=== PATIENT | female | born 1960 | race Caucasian/White ===

== ENCOUNTER 2017-07-31 12:04 | Emergency (ER) | payer BC ==
[2017-07-31] MEDS ORDERED: Diphtheria,Pertussis(Acell),Tetanus Vaccine 0.5 ML SDV IM ONE (12:27)
[2017-07-31] MEDS ORDERED: Lidocaine 1% 20 ML MDV INJECT ONE (12:27)
[2017-07-31 12:28] VITALS: BP 150/89
--- NOTE | 2017-07-31 12:33 | EDM.PDOC ---
ED HPI GENERAL MEDICAL PROBLEM - General Chief Complaint: Laceration Stated Complaint: FINGER LAC Time Seen by Provider: 07/31/17 12:20 Source of Information: Reports: Patient History Limitations: Reports: No Limitations - History of Present Illness INITIAL COMMENTS - FREE TEXT/NARRATIVE: Patient is a 56-year-old female presents ED complaining of a crush injury to the distal phalanx of the right middle finger and with laceration. Patient states she was taking apart HLS when I folded back on her pinching her finger between 2 pieces of metal. Pain is localized to the distal tip. Bleeding is minimal. No sensory changes noted. Tetanus status is not up-to-date. No pain to remainder fingers or hand. She denies any additional complaints. Right 3-Middle finger Pain Score (Numeric/FACES): 6 - Related Data Allergies Allergy/AdvReac Type Severity Reaction Status Date / Time No Known Allergies Allergy Verified 07/31/17 12:31 Home Meds: Home Meds Ascorbate Calcium [Vitamin C] 500 mg PO DAILY 07/31/17 [History] Cephalexin [Keflex] 500 mg PO Q6HR #28 cap 07/31/17 [Rx] [place] Eye Drop 1 drop TOP DAILY 07/31/17 [History] Fish Oil/[place]-3 Fatty Acids [Fish Oil 1,000 MG] 1 gram PO DAILY 07/31/17 [ History] Multivitamin [Multivitamins] 1 cap PO DAILY 07/31/17 [History] Occuvite Eye Tabs 1 tab PO DAILY 07/31/17 [History] ED ROS GENERAL - Review of Systems Review Of Systems: ROS reveals no pertinent complaints other than HPI. ED EXAM, SKIN/RASH Exam: See Below Exam Limited By: No Limitations General Appearance: Alert, WD/WN, No Apparent Distress Ears: Hearing Grossly Normal Throat/Mouth: Normal Inspection, Normal Voice, No Airway Compromise Neck: Normal Inspection, Supple Respiratory/Chest: No Respiratory Distress, No Accessory Muscle Use Cardiovascular: Normal Peripheral Pulses Extremities: Other (Right middle finger distal tip: Small laceration noted to the lateral aspect of the finger involving the lateral border of the nail bed. Hematoma underneath the nail bed. Mild swelling present. An with palpation. No bony abnormalities. Able to extend and flex the finger at the DIP and PIP. No sensory changes noted.) Neurological: Alert, Oriented, CN II-XII Intact, Normal Cognition, No Motor/ Sensory Deficits Psychiatric: Normal Affect, Normal Mood Skin: Warm, Dry, Normal Color ED SKIN PROCEDURES - Laceration/Wound Repair Right Finger Lac/Wound length In cm: 0.5 Appearance: Subcutaneous, Clean Distal NVT: Neuro & Vascular Intact, No Tendon Injury Anesthetic Type: Digital Local Anesthesia - Lidocaine (Xylocaine): 1% Plain Local Anesthetic Volume: 4cc Skin Prep: Chlorhexidine (Hibiciens), Saline, Sterile Drape Exploration/Debridement/Repair: Wound Explored, In a Bloodless Field, Explored to Base, No Foreign Material Found Closed with: Sutures Suture Size: 4-0 # of Sutures: 4 (Including one suture to the distal nail on the corners to reattach tip under the nail. ) Suture Type: Prolene, Interrupted, Simple Drain Placement: No Sterile Dressing Applied: Nurse Tetanus Status Addressed: Yes Complications: No Right Distal Finger Lac/Wound length In cm: 0.2 Appearance: Subcutaneous Distal NVT: Neuro & Vascular Intact Anesthetic Type: Digital Local Anesthesia - Lidocaine (Xylocaine): 1% Plain Local Anesthetic Volume: 4cc Skin Prep: Chlorhexidine (Hibiciens), Saline, Sterile Drape Exploration/Debridement/Repair: Wound Explored, In a Bloodless Field, Explored to Base Closed with: Sutures Suture Size: 4-0 # of Sutures: 1 Suture Type: Prolene, Interrupted, Simple Drain Placement: No Sterile Dressing Applied: Nurse Tetanus Status Addressed: Yes Complications: No Course - Vital Signs Last Recorded V/S: Last Vital Signs Temp 97.5 F 07/31/17 12:05 Pulse 91 07/31/17 12:05 Resp 20 07/31/17 12:05 BP 150/89 H 07/31/17 12:05 Pulse Ox 98 07/31/17 12:05 - Orders/Labs/Meds Orders: Active Orders 24 hr Category Date Time Status Vaccines to be Administered [RC] PER UNIT ROUTINE Care 07/31/17 12:28 Active Fingers Third Digit Rt F7 [CR] Stat Exams 07/31/17 12:27 Taken Meds: Medications Discontinued Medications Generic Name Dose Route Start Last Admin Trade Name Freq PRN Reason Stop Dose Admin Cephalexin 500 mg 07/31/17 13:07 07/31/17 13:17 Keflex PO 07/31/17 13:08 500 mg ONETIME ONE Administration Diphtheria/Tetanus/Acell Pertussis 0.5 ml 07/31/17 12:27 07/31/17 12:44 Adacel IM 07/31/17 12:28 0.5 ml .ONCE ONE Administration Lidocaine HCl 20 ml 07/31/17 12:27 07/31/17 13:20 Xylocaine 1% INJECT 07/31/17 12:28 Not Given ONETIME ONE Lidocaine HCl Confirm 07/31/17 12:44 07/31/17 12:48 Xylocaine 1% Administered 07/31/17 12:45 Not Given Dose 50 ml .ROUTE .STK-MED ONE Lidocaine HCl 50 ml 07/31/17 13:15 07/31/17 13:17 Xylocaine 1% INJECT 07/31/17 13:16 50 ml ONETIME ONE Administration - Re-Assessments/Exams Free Text/Narrative Re-Assessment/Exam: Ordered x-ray of the right third finger, Adacel, and lidocaine 1%. X-ray of the right third finger revealed tuft fracture. Thus due to proximity of laceration with fracture will treat as open fracture. Keflex 500mg po ordered. Laceration closed with no complications. We'll discharge patient home with instructions as documented. Departure - Departure Time of Disposition: 12:33 Disposition: Home, Self-Care 01 Condition: Good Clinical Impression: Crushing injury of finger of right hand Laceration of finger Qualifiers: Encounter type: initial encounter Finger: middle finger Damage to nail status: without damage Foreign body presence: without foreign body Laterality: right Qualified Code(s): S61.212A - Laceration without foreign body of right middle finger without damage to nail, initial encounter Open fracture of finger of right hand Qualifiers: Encounter type: initial encounter Finger: middle finger Phalanx: distal Fracture alignment: nondisplaced Qualified Code(s): S62.662B - Nondisplaced fracture of distal phalanx of right middle finger, initial encounter for open fracture - Discharge Information Prescriptions: Cephalexin [Keflex] 500 mg PO Q6HR #28 cap Instructions: Laceration Care, Adult, [id number], Stitches, Jessica, or Adhesive Wound Closure, [id number] Referrals: Carlitos Mijares MD [Physician] - Forms: ED Department Discharge Additional Instructions: Cleanse site twice daily with soap and water, pat dry, reapply triple antibiotic ointment, and dressing. No soaking wound. Keep area clean and dry. Elevate when able to reduce swelling and pain. Can place ice to affected area as needed. Utilize Tylenol and ibuprofen in alternating fashion for pain. Follow -up with your Maryana Cooley in 7 days. See a provider at [facility] in 10-14 days to have sutures removed. Leave splint in place for one month. Take the full course of keflex as prescribed. Return to ED as needed for any new or worsening symptoms. - My Orders Last 24 Hours: My Active Orders 07/31/17 12:27 Fingers Third Digit Rt F7 [CR] Stat 07/31/17 12:28 Vaccines to be Administered [RC] PER UNIT ROUTINE - Assessment/Plan Last 24 Hours: My Active Orders 07/31/17 12:27 Fingers Third Digit Rt F7 [CR] Stat 07/31/17 12:28 Vaccines to be Administered [RC] PER UNIT ROUTINE
[2017-07-31] MEDS: Lidocaine 1% 50 ML MDV ONE ×2 (12:45→12:48)
[2017-07-31] MEDS ORDERED: Cephalexin 500 MG Cap PO ONE (13:07)
[2017-07-31] MEDS ORDERED: Lidocaine 1% 50 ML MDV INJECT ONE (13:15)
[2017-07-31] MEDS ORDERED: Cephalexin 500 MG Cap ONE (14:10)
--- NOTE | 2017-07-31 16:55 | CR ---
Right third finger: Four views of the right third finger were obtained. Slightly comminuted fracture identified involving the distal tuft of the right third finger. Soft tissue swelling is identified. Mild degenerative change is noted within the DIP joint. No additional bony abnormality is identified. Small soft tissue calcification is seen proximal to the PIP joint which is felt to be incidental. Impression: 1. Fracture within the distal tuft of the right third finger. 2. Other incidental findings. Diagnostic code #3
== END 2017-07-31 13:55 | disposition home or self-care (01) ==
LOC: JD.ED 12:04
DX: S62.662B Nondisplaced fracture of distal phalanx of right middle finger, initial encounter for open fracture (principal); S61.212A Laceration without foreign body of right middle finger without damage to nail, initial encounter; Z23 Encounter for immunization; Z79.899 Other long term (current) drug therapy; W23.1XXA Caught, crushed, jammed, or pinched between stationary objects, initial encounter
CPT/HCPCS: 12001; 73140; 90471; 90715; 99284; A9270; 64450; 99283-25

== ENCOUNTER 2025-07-11 12:10 | Inpatient (IN) | payer BC ==
[2025-07-11] MEDS ORDERED: Sodium Chloride 0.9% 10 ML Syringe FLUSH PRN (13:10)
[2025-07-11 14:06] LABS: A/G RATIO 0.7 (1-2); ALANINE AMINOTRANSFERASE,ALT 28 U/L (14-59); ASPARTATE AMNIOTRANSFERASE,AST 50 U/L (15-37); BILIRUBIN TOTAL 4.8 mg/dL (0.2-1.0); BLOOD UREA NITROGEN,BUN 39 mg/dL (7-18); CARBON DIOXIDE,CO2 20 mEq/L (21-32); CHLORIDE,CL 96 mEq/L (98-107); ESTIMATED GFR 34 mL/min (>60); GLUCOSE RANDOM 109 mg/dL (70-99); POTASSIUM,K 4.5 mEq/L (3.5-5.1); SODIUM,NA 128 mEq/L (136-145); TROPONIN I HIGH SENSITIVITY 9 pg/mL (<=51)
[2025-07-11 14:07] LABS: BASOPHILS ABSOLUTE AUTO 0.0 K/mm3 (0.0-0.2); BASOPHILS PERCENT AUTO 0.5 % (0.0-1.0); EOSINOPHILS ABSOLUTE AUTO 0.0 K/mm3 (0.0-0.4); EOSINOPHILS PERCENT AUTO 0.0 % (0.0-6.0); IMMATURE GRAN ABSOLUTE AUTO 0.04 K/mm3 (0.00-0.05); IMMATURE GRAN PERCENT AUTO 0.7 % (0.0-0.4); LYMPHOCYTES ABSOLUTE AUTO 1.7 K/mm3 (1.0-4.8); LYMPHOCYTES PERCENT AUTO 27.5 % (24.0-44.0); MEAN PLATELET VOLUME 9.0 fl (9.4-12.3); MONOCYTES ABSOLUTE AUTO 0.9 K/mm3 (0.0-0.8); MONOCYTES PERCENT AUTO 14.1 % (0.0-8.0); NEUTROPHILS ABSOLUTE AUTO 3.5 K/mm3 (1.8-7.7); NEUTROPHILS PERCENT AUTO 57.2 % (41.0-71.0); NRBC ABSOLUTE 0.00 (0.00-0.02); NRBC PERCENT 0.0 % (0.0-0.2); PLATELET COUNT,PLT 111 K/mm3 (150-400); RED BLOOD CELL COUNT 1.50 M/mm3 (4.10-5.30); WHITE BLOOD CELL COUNT,WBC 6.11 K/mm3 (3.9-11.3)
[2025-07-11 14:12] LABS: CREATININE 1.7 mg/dL (0.55-1.02)
[2025-07-11 14:13] LABS: INR 1.27; PROTEIN TOTAL,TP 6.2 g/dl (6.4-8.2)
[2025-07-11 14:15] LABS: PTT,PARTIAL THROMBOPLSTIN TIME 25.4 SECONDS (21.7-31.4)
[2025-07-11] MEDS ORDERED: Ondansetron 4 MG/2 ML SDV IV PRN (16:22)
[2025-07-11 16:36] LABS: IRON,FE 34.0 ug/dL (50-170); PERCENT FE SATURATION 14.0 % (20-55)
[2025-07-11 17:25] LABS: FOLIC ACID 12.8 ng/mL (8.6-58.9)
[2025-07-11 20:44] LABS: APPEARANCE,URINE CLEAR (Clear); GLUCOSE,URINE NEGATIVE (Negative); OCCULT BLOOD,URINE NEGATIVE (Negative)
[2025-07-12 05:58] LABS: BASOPHILS ABSOLUTE AUTO 0.0 K/mm3 (0.0-0.2); BASOPHILS PERCENT AUTO 0.6 % (0.0-1.0); EOSINOPHILS ABSOLUTE AUTO 0.0 K/mm3 (0.0-0.4); EOSINOPHILS PERCENT AUTO 0.0 % (0.0-6.0); IMMATURE GRAN ABSOLUTE AUTO 0.02 K/mm3 (0.00-0.05); IMMATURE GRAN PERCENT AUTO 0.4 % (0.0-0.4); LYMPHOCYTES ABSOLUTE AUTO 1.8 K/mm3 (1.0-4.8); LYMPHOCYTES PERCENT AUTO 33.6 % (24.0-44.0); MEAN PLATELET VOLUME 8.7 fl (9.4-12.3); MONOCYTES ABSOLUTE AUTO 0.7 K/mm3 (0.0-0.8); MONOCYTES PERCENT AUTO 12.5 % (0.0-8.0); NEUTROPHILS ABSOLUTE AUTO 2.9 K/mm3 (1.8-7.7); NEUTROPHILS PERCENT AUTO 52.9 % (41.0-71.0); NRBC ABSOLUTE 0.00 (0.00-0.02); NRBC PERCENT 0.0 % (0.0-0.2); PLATELET COUNT,PLT 88 K/mm3 (150-400); RED BLOOD CELL COUNT 2.42 M/mm3 (4.10-5.30); WHITE BLOOD CELL COUNT,WBC 5.38 K/mm3 (3.9-11.3)
[2025-07-12 06:22] LABS: A/G RATIO 0.6 (1-2); ALANINE AMINOTRANSFERASE,ALT 23.0 U/L (14-59); ASPARTATE AMNIOTRANSFERASE,AST 40.0 U/L (15-37); BILIRUBIN TOTAL 5.7 mg/dL (0.2-1.0); BLOOD UREA NITROGEN,BUN 31.0 mg/dL (7-18); CARBON DIOXIDE,CO2 22.0 mEq/L (21-32); CHLORIDE,CL 98.0 mEq/L (98-107); EST CRCL DRUG DOSING (CG) 42.0 mL/min; ESTIMATED GFR 46.0 mL/min (>60); GLUCOSE RANDOM 95.0 mg/dL (70-99); POTASSIUM,K 4.4 mEq/L (3.5-5.1); SODIUM,NA 128.0 mEq/L (136-145)
[2025-07-12] MEDS: Ferrous Sulfate 324 MG Tab.EC PO SCH (06:36)
[2025-07-12 06:38] LABS: CREATININE 1.3 mg/dL (0.55-1.02); PROTEIN TOTAL,TP 5.7 g/dl (6.4-8.2)
[2025-07-12 14:02] VITALS: BP 107/60; PULSE 97
== END 2025-07-12 13:58 | disposition home or self-care (01) | DRG 663 ==
LOC: JD.ED 12:10 → JD.MS 16:22 → JD.ICU 21:14 → JD.MS 21:26
PROVIDERS: ADMIT Family Medicine; ATTEND Family Medicine
PROC: 0HQ0XZZ Repair Scalp Skin, External Approach (ICD-10-PCS; principal; 2025-07-11)
PROC: 30233N1 Transfusion of Nonautologous Red Blood Cells into Peripheral Vein, Percutaneous Approach (ICD-10-PCS; 2025-07-11)
DX: D62 Acute posthemorrhagic anemia (principal); S01.91XA Laceration without foreign body of unspecified part of head, initial encounter; W19.XXXA Unspecified fall, initial encounter; K70.31 Alcoholic cirrhosis of liver with ascites; H54.7 Unspecified visual loss; D68.9 Coagulation defect, unspecified; N17.9 Acute kidney failure, unspecified; I86.4 Gastric varices; K25.4 Chronic or unspecified gastric ulcer with hemorrhage; Y92.89 Other specified places as the place of occurrence of the external cause; Z79.899 Other long term (current) drug therapy; Z98.49 Cataract extraction status, unspecified eye; Z90.49 Acquired absence of other specified parts of digestive tract; Z87.891 Personal history of nicotine dependence
CPT/HCPCS: 12002; 36415; 36430; 70250; 70250-26; 71045; 71045-26; 80053; 81001; 82607; 82746; 83540; 83735; 84466; 84484; 85014; 85018; 85025; 85610; 85730; 86850; 86900; 86901; 86922; 93005; 93010; 99285; A9270-GY; J1171; J2003; J2470; P9016

== ENCOUNTER 2025-07-19 22:18 | Emergency (ER) | payer BC ==
[2025-07-19] MEDS: Lidocaine 1% with EPINEPHrine 1:100,000 20 ML MDV INJECT ONE (22:50)
[2025-07-19 23:35] LABS: BASOPHILS ABSOLUTE AUTO 0.0 K/mm3 (0.0-0.2); BASOPHILS PERCENT AUTO 0.3 % (0.0-1.0); EOSINOPHILS ABSOLUTE AUTO 0.0 K/mm3 (0.0-0.4); EOSINOPHILS PERCENT AUTO 0.2 % (0.0-6.0); IMMATURE GRAN ABSOLUTE AUTO 0.02 K/mm3 (0.00-0.05); IMMATURE GRAN PERCENT AUTO 0.3 % (0.0-0.4); LYMPHOCYTES ABSOLUTE AUTO 2.1 K/mm3 (1.0-4.8); LYMPHOCYTES PERCENT AUTO 32.1 % (24.0-44.0); MEAN PLATELET VOLUME 9.0 fl (9.4-12.3); MONOCYTES ABSOLUTE AUTO 0.9 K/mm3 (0.0-0.8); MONOCYTES PERCENT AUTO 14.0 % (0.0-8.0); NEUTROPHILS ABSOLUTE AUTO 3.4 K/mm3 (1.8-7.7); NEUTROPHILS PERCENT AUTO 53.1 % (41.0-71.0); NRBC ABSOLUTE 0.00 (0.00-0.02); NRBC PERCENT 0.0 % (0.0-0.2); PLATELET COUNT,PLT 109 K/mm3 (150-400); RED BLOOD CELL COUNT 2.23 M/mm3 (4.10-5.30); WHITE BLOOD CELL COUNT,WBC 6.41 K/mm3 (3.9-11.3)
[2025-07-20] MEDS: Lidocaine 1% with EPINEPHrine 1:100,000 20 ML MDV ONE (01:03)
[2025-07-20] MEDS: Acetaminophen/oxyCODONE 325-5 MG Tab PO ONE (01:59)
[2025-07-20] MEDS: Ondansetron 4 MG Tab.DIS PO ONE (01:59)
[2025-07-20 05:51] VITALS: BP 108/65; PULSE 82
== END 2025-07-20 06:20 | disposition home or self-care (01) ==
LOC: JD.ED 22:18
DX: T81.33XA Disruption of traumatic injury wound repair, initial encounter (principal); D64.9 Anemia, unspecified; Z79.899 Other long term (current) drug therapy
CPT/HCPCS: 12020; 36415; 36430; 85025; 86850; 86900; 86901; 86922; 96360; 96361; 99284; A9270; J2004; J7050; P9016; 12002